=== PATIENT | female | born 1995 | race American Indian/Alaskan Native ===

== ENCOUNTER 2016-11-08 14:35 | Emergency (ER) | payer SELFPAY ==
[2016-11-08 15:05] VITALS: BP 108/70
--- NOTE | 2016-11-08 16:15 | Emergency Department Report ---
Chief Complaint: Weakness Stated Complaint: BIPOLAR/CHEST PAIN Time Seen by Provider: 11/08/16 16:10 - HPI History of Present Illness: Patient reports chest and abd pain, blurred vision that started today. LMP 2015 - ROS Review of Systems: all other systems are unremarkable except for documentation in HPI - Exam Vital Signs: Vital Signs 11/08/16 15:02 Temperature 98.6 F Pulse Rate 94 H Respiratory 16 Rate Blood Pressure 108/70 O2 Sat by Pulse 98 Oximetry Physical Exam: Gen: well developed and nourished, NAD Abd: soft, nondistended, diffuse tenderness, bowel sounds present, no guarding, rigid or guarding MSE screening note: Focused history and physical exam performed. Due to findings the following was ordered: laboratory studies ordered ED Disposition for MSE Disposition: LEFT AGAINST MEDICAL ADVICE Condition: Stable Forms:
--- NOTE | 2016-11-09 23:30 | ED Elopement Review ---
ED Pt Elopement review - Call Back decision Pt Call Back Decision: Pt to F/U with PMD
== END 2016-11-08 16:16 | disposition left against medical advice (07) ==
LOC: ED 14:35
DX: R07.9 Chest pain, unspecified (principal); R10.9 Unspecified abdominal pain; H53.8 Other visual disturbances; Z53.21 Procedure and treatment not carried out due to patient leaving prior to being seen by health care provider